=== PATIENT | male | born 1950 | race Caucasian/White ===

== ENCOUNTER 2020-10-31 06:34 | Outpatient (CLI) | payer MEDICARE, SELFPAY ==
--- NOTE | ~2020-10-31 | CT_ITS ---
EXAMINATION: CT abdomen pelvis wo/w con DATE: 10/31/2020 07:20 INDICATION: History of renal cell cancer TECHNIQUE: Computed tomography (CT) of the abdomen and pelvis was performed without and with 100 cc O mnipaque 350 intravenous contrast. The dose-length product was 1030.43 mGy-cm. Automated exposure con trol and iterative reconstruction technique were employed. COMPARISON: CT dated 03/14/2019. FINDINGS: There is scarring along the posterior inferior margin of the right kidney, consistent with previous ablation/resection. There is focal pleural-based soft tissue along the right lower lateral pleural based margin of the devika ng involving the fissure measuring 1.8 x 1 cm. There are changes of mild chronic interstitial lung di sease. This is not significantly changed from prior examination allowing for differences in technique , likely focal pleural thickening/scarring rather than malignancy. There are calcified granulomas of the spleen. Heart size is normal. The liver, pancreas, adrenal glands and left kidney are unremarkable. There is a small subcentimeter hypovascular lesion of the right kidney anteriorly, too small to characterize, although statistically most likely benign. There is a right lower abdominal ileostomy. Status post pa rtial colectomy. No significant vascular abnormality. No lymphadenopathy. No suspicious sclerotic or lytic lesions to suggest metastatic disease. IMPRESSION: 1. Focal pleural-based right lower lobe mass measuring 1.8 x 1 cm, likely postinfectious/inflammatory . Malignancy is in much less likely given the lack of significant interval change. 2: Stable appearance to scarring of the right kidney, consistent with prior ablation/resection of kno wn malignancy. Reviewed, dictated and finalized at location B. IMPRESSION: 1. Focal pleural-based right lower lobe mass measuring 1.8 x 1 cm, likely posti nfectious/inflammatory. Malignancy is in much less likely given the lack of sig nificant interval change. 2: Stable appearance to scarring of the right kidney, consistent with prior abl ation/resection of known malignancy.
[2020-10-31 07:11] LABS: Estimated Glomerular Filt Rate > 60
== END 2020-10-31 06:35 | disposition home or self-care (01) ==
PROVIDERS: PCP Physician Assistant; Visit Provider Physician Assistant
DX: Z85.528 Personal history of other malignant neoplasm of kidney (principal); R91.8 Other nonspecific abnormal finding of lung field
CPT/HCPCS: 74178; Q9967

== ENCOUNTER 2024-06-24 15:15 | Outpatient (CLI) | payer MEDICARE, SELFPAY ==
--- NOTE | ~2024-06-24 | CT_ITS ---
EXAMINATION: CT abdomen pelvis wo/w con DATE: 06/24/2024 16:06 INDICATION: Personal history of other malignant neoplasm. Right-sided renal cell carcinoma. TECHNIQUE: Computed tomography (CT) of the abdomen and pelvis was performed without and with 100 mL O mnipaque 350 intravenous contrast. Automated exposure control and iterative reconstruction technique were employed. The dose-length product was 926.06 mGy-cm. COMPARISON: CT abdomen and pelvis 10/31/2020, 11/07/2015 FINDINGS: The visualized portions of the lung bases demonstrate mild atelectasis and mild chronic janee g disease. There is mild bronchiectasis bilaterally. No pleural effusion. The heart size is normal. N o pericardial effusion. Calcifications in the liver and spleen are consistent with old granulomatous disease. The gallbladder, pancreas, adrenal glands, and left kidney are normal. There is focal volume loss of right kidney. There is a 6 mm stone in right kidney. The bladder is distended. The prostate is moderately enlarged. There is a left inguinal hernia containing fat. There are changes of colectom y. There is an end ileostomy on the right. There are no pathologically enlarged lymph nodes. There is no free intraperitoneal fluid. There is mild thoracic and lumbar spondylosis. There is mild chronic anterior wedging of multiple vertebral bodies. IMPRESSION: 1. No evidence of malignancy. Reviewed, dictated and finalized at location A. [employer] FI[employer]IST[employer]
[2024-06-24 15:59] LABS: Estimated Glomerular Filt Rate > 60
== END 2024-06-24 15:16 | disposition home or self-care (01) ==
PROVIDERS: PCP Nurse Practitioner; Visit Provider Nurse Practitioner
DX: Z85.528 Personal history of other malignant neoplasm of kidney (principal); Z87.448 Personal history of other diseases of urinary system
CPT/HCPCS: 74178; Q9967